=== PATIENT | female | born 1985 | race Caucasian/White ===

== ENCOUNTER 2021-01-22 05:08 | Emergency (ER) | payer OTHER ==
[~2021-01-22 05:08] MED LIST: ASPIRIN CHEWABL81 MG PO; ATIVAN1 MG PO; FLAGYL500 MG PO
[2021-01-22 06:44] LABS: RED BLOOD COUNT 4.72 M/UL (4.00-5.10); WHITE BLOOD COUNT 7.1 K/UL (4.5-11.0)
[2021-01-22] MEDS ORDERED: REGLAN5 MG PO (08:02)
[2021-01-22] MEDS ORDERED: ZOFRAN ODT 4 MG4 MG SL (08:02)
== END 2021-01-22 09:35 | disposition home or self-care (01) ==
LOC: ER1 05:08
PROVIDERS: Family Medicine
DX: K56.7 Ileus, unspecified (principal); K82.8 Other specified diseases of gallbladder; Z98.2 Presence of cerebrospinal fluid drainage device
CPT/HCPCS: 36415; 70450; 71045; 80053; 83605; 83690; 85025; 96374; 96375; 99284; J1885; J2270; J2405; J2550; Q9967

== ENCOUNTER → 2021-08-23 | Outpatient (CLI) | payer OTHER ==
[~2021-08-23] MED LIST changes: +REGLAN5 MG PO; +ZOFRAN ODT 4 MG4 MG SL
== END ==
LOC: EXRD 10:52
DX: M25.551 Pain in right hip (principal)
CPT/HCPCS: 73502